=== PATIENT | female | born 1985 | race Caucasian/White ===

== ENCOUNTER → 2017-01-29 | Outpatient (CLI) | payer OTHER ==
[~2017-01-29] MED LIST: OXYC20TA21 PO; PERCOCET PO; PRENTAB40 PO
--- NOTE | 2017-01-30 03:30 | REP ---
Clinical: Knee pain. Technique: AP and lateral views of the right and left knee. Findings: Moderate to early advanced symmetric bilateral tricompartmental osteoarthritic degenerative changes appreciated. Small suprapatellar effusions cannot be excluded. Findings include marginal and patellar osteophytes as well as spurring to the tibial spines and cortical irregularity primarily involving the bilateral lateral femoral condyles. Impression: Moderate to early advanced symmetric tricompartmental osteoarthritic degenerative changes. Signed by Kunal Romero MD 01/30/2017 03:21 A
== END ==
LOC: M CLY 10:04
PROVIDERS: ATTEND Family Medicine
DX: M25.561 Pain in right knee (principal); M25.562 Pain in left knee; M17.0 Bilateral primary osteoarthritis of knee